=== PATIENT | female | born 1980 | race Caucasian/White ===

== ENCOUNTER 2020-07-08 01:30 | Emergency (ER) | payer OTHER, SELFPAY ==
[2020-07-08 01:30] VITALS: BP 114/58; PULSE 104; RESP 20; O2SAT 100
[2020-07-08 01:40] VITALS: BP 114/58; PULSE 104; RESP 18; O2SAT 100
[2020-07-08 01:46] VITALS: TEMP 37.1
--- NOTE | 2020-07-08 01:47 | ED.CHESTPAIN ---
HPI - Chest Pain General Chief Complaint: Chest Pain Stated Complaint: tachcardic, chest pain started after covid vac Time Seen by Provider: 07/08/20 01:37 Source: patient Mode of arrival: Ambulatory Limitations: no limitations History of Present Illness HPI narrative: 39-year-old woman with a history of depression and anxiety presents 12 hours after her 2nd COVID shot complaining of myalgias and tachycardia significant enough that she is unable to sleep. She describes chest pain across the entire chest associated with rapid heart rate. She has no other specific symptoms. No cough no abdominal pain, no fevers, no dysuria. Related Data Previous Rx's Medication Instructions Recorded citalopram 20 mg tablet 20 mg PO DAILY #135 tab 06/29/20 Allergies Allergy/AdvReac Type Severity Reaction Status Date / Time INGREDIENT: NDA - NO KNOWN Allergy Unknown Uncoded 07/03/20 12:05 DRUG ALLERGIES Review of Systems Review of Systems ROS Unobtainable: All systems reviewed & are unremarkable except as noted in HPI and below Patient History Medical History Depression with anxiety Surgical History H/O hysterectomy for benign disease Family History Sister Bipolar 1 disorder Social History Smoking Status: Never smoker Smoking Status: Never smoker alcohol intake frequency: holidays/special occasions only Substance Use Type: does not use Exam Narrative Exam Narrative: General: Healthy appearing, in no acute distress. Able to give a complete and coherent history. Well-nourished well-developed HEENT: Moist mucous membranes, normal sclera with reactive pupils, Respiratory: Lungs are clear to auscultation, no wheezing no rales no rhonchi. Full and symmetrical air movement Cardiac: Regular rate and rhythm no murmurs no bruits Abdomen: Soft, nontender, good bowel tones, no flank pain Skin: Warm and dry, no rashes Neurologic: Grossly neurologically intact with no obvious asymmetries or abnormalities Extremities: No trauma, well perfused Psych: Cooperative, appropriate insight and affect Initial Vital Signs Initial Vital Signs: Vital Signs Pulse Rate 104 H 07/08/20 01:30 Respiratory Rate 20 07/08/20 01:30 Blood Pressure 114/58 L 07/08/20 01:30 Pulse Oximetry 100 07/08/20 01:30 Course Orders Ordered: ED Orders 07/08/20 01:37 EKG-12 Lead Stat Discontinued Medications Ibuprofen (Ibuprofen 400 Mg Tablet) 400 mg PO NOW ONE Stop: 07/08/20 01:47 Last Admin: 07/08/20 01:58 Dose: 400 mg Documented by: Metoprolol Tartrate (Metoprolol Ir 25 Mg Tablet) 25 mg PO NOW ONE Stop: 07/08/20 01:47 Last Admin: 07/08/20 01:58 Dose: 25 mg Documented by: Vital Signs Vital signs: Vital Signs - 8 hr 07/08/20 01:30 07/08/20 01:46 Temperature 98.8 F Pulse Rate 104 H Respiratory Rate 20 Blood Pressure 114/58 L Pulse Oximetry 100 [facility] - Chest Pain ECG Data Attestation: I personally reviewed and interpreted this ECG as follows: Interpretation: Sinus tachycardia at a rate of 104 Normal sinus, normal intervals No acute ischemic changes0 [facility] Narrative Medical decision making narrative: 39-year-old woman with palpitations and general malaise 12 hours after 2nd COVID vaccination. She describes sinus tachycardia up into the 130 range well laying down. It is finding this to uncomfortable to sleep. On arrival she is in a sinus tachycardia 110 with unremarkable EKG. She is given 25 mg of oral metoprolol and her heart rate comes down to the mid 80s with the sensation of tachycardia resolving. At this point the most likely explanation for her palpitations is a reaction to her COVID vaccine. Should she have recurrent symptoms a more thorough workup would be appropriate. She is safe for home discharge at this time Discharge Plan Departure Patient Disposition: Home Clinical Impression: Palpitations Medication reaction Qualifiers: Encounter type: initial encounter Qualified Code(s): T50.905A - Adverse effect of unspecified drugs, medicaments and biological substances, initial encounter Instructions: DI for Palpitations Activity Restrictions/Additional Instructions: Thank you for coming in tonight You clearly are having a robust immune response to your 2nd COVID vaccination. Your heart palpitations were controlled with 25 mg of oral metoprolol. Should last for another 12 hours or so. Most people find that their reactions are resolving by 24 hours. If you find that your having new symptoms or feeling worse, please feel free to return to the emergency department Prescriptions: No Action citalopram 20 mg tablet 20 mg PO DAILY Qty: 135 RF: 2 Referrals: Gary Ortega MD [Primary Care Provider] -
[2020-07-08] MEDS: IBUPROFEN 400 MG TABLET PO (01:58)
[2020-07-08] MEDS: METOPROLOL IR 25 MG TABLET PO (01:58)
[2020-07-08 02:00] VITALS: BP 115/56; PULSE 106; RESP 22; O2SAT 100
[2020-07-08 02:30] VITALS: BP 101/58; PULSE 87; RESP 23; O2SAT 98
[2020-07-08 03:04] VITALS: BP 101/58; PULSE 74; RESP 20; O2SAT 98
== END 2020-07-08 03:05 | disposition home or self-care (01) ==
PROVIDERS: Emergency Provider Emergency Medicine; PCP Family Medicine; Referring Provider Family Medicine
DX: R07.9 Chest pain, unspecified (principal); R00.2 Palpitations; T50.Z95A Adverse effect of other vaccines and biological substances, initial encounter
CPT/HCPCS: 93005; 93010; 99283

== ENCOUNTER → 2021-08-18 09:28 | Outpatient (CLI) | payer OTHER, SELFPAY ==
[2021-08-18 10:45] LABS: Add Manual Diff / Slide Review NO; Basophils Absolute Auto 0 /uL (0-100); Basophils Percent Auto 0.6 % (0-2); Eosinophils Absolute Auto 100 /uL (0-450); Eosinophils Percent Auto 1.6 % (2-4); Hematocrit 37.9 % (36-46); Hemoglobin 13.4 g/dL (12.0-16.0); Lymphocytes Absolute Auto 1200 /uL (1100-4500); Lymphocytes Percent Auto 25.4 % (25-40); Mean Corpuscular HGB Conc 35.3 % (30-36); Mean Corpuscular Hemoglobin 31.3 PG (26-34); Mean Corpuscular Volume 88.5 fL (80-100); Monocytes Absolute Auto 400 /uL (0-900); Monocytes Percent Auto 7.7 % (3-14); Neutrophils Absolute Auto 3000 /uL (1500-7000); Neutrophils Percent Auto 64.7 % (50-75); Platelet Count 197 X10^3/uL (150-400); Red Blood Cell Count 4.29 X10^6/uL (4.0-5.2); Red Cell Distribution Width 12.9 % (11.6-14.8); White Blood Cell Count 4.6 X10^3/uL (4.5-11.0)
[2021-08-18 10:50] LABS: Alanine Aminotransferase 22 IU/L (<35); Albumin 4.5 g/dL (3.5-5.0); Albumin Globulin Ratio 1.5 (1.0-2.8); Alkaline Phosphatase 50 U/L (38-126); Aspartate Aminotransferase 23 IU/L (14-36); BUN Creatinine Ratio 20.9 (6-22); Bilirubin Total 0.6 mg/dL (0.2-1.3); Blood Urea Nitrogen 14 mg/dL (7-17); C-Reactive Protein Quant < 0.5 mg/dL (<1.0); Calcium 8.9 mg/dL (8.4-10.2); Carbon Dioxide 24 mmol/L (22-32); Chloride 105 mmol/L (98-107); Estimated Glomerular Filt Rate > 60.0 mL/min (>60); Glucose 95 mg/dL (70-100); HEMOLYSIS < 15 (0-50); Potassium 4.5 mmol/L (3.4-5.1); Sodium 135 mmol/L (137-145); Total Protein 7.5 g/dL (6.3-8.2)
[2021-08-18 11:18] LABS: TSH w/ Reflex to FT4 2.04 uIU/mL (0.47-4.68)
[2021-08-18 11:40] LABS: Erythrocyte Sedimentation Rate 6 MM/HR (0-20)
[2021-08-21 18:37] LABS: ANA Screen, IFA Positive (.)
== END ==
PROVIDERS: PCP Family Medicine; Referring Provider Family Medicine; Visit Provider Family Medicine
DX: F41.8 Other specified anxiety disorders (principal); M25.50 Pain in unspecified joint; M25.60 Stiffness of unspecified joint, not elsewhere classified; R76.8 Other specified abnormal immunological findings in serum
CPT/HCPCS: 36415; 80053; 84443; 85025; 85651; 86038; 86140

== ENCOUNTER → 2021-09-08 08:19 | Outpatient (CLI) | payer OTHER, SELFPAY ==
--- NOTE | 2021-09-08 08:20 | DI.RAD.S_ITS ---
PROCEDURE: XR FOOT RT MIN 3V INDICATIONS: bilateral hand and foot pain TECHNIQUE: 3 views of the foot were acquired. COMPARISON: [facility], CR, XR HAND LT MIN 3V, 09/08/2021, 8:21. [facility], CR, XR HAND RT MIN 3V, 09/08/2021, 8:21. [facility], CR, XR FOOT LT MIN 3V, 09/08/2021, 8:21. FINDINGS: Bones: No fractures or dislocations. No suspicious bony lesions. Incidental note is made of a bipartite medial sesamoid bone. Soft tissues: No tibiotalar joint effusion. Achilles tendon appears normal. IMPRESSION: Right foot plain films within normal limits. Dictated by: Odell Jennings M.D. on 09/08/2021 at 9:54 Approved by: Odell Jennings M.D. on 09/08/2021 at 9:54
--- NOTE | 2021-09-08 08:20 | DI.RAD.S_ITS ---
PROCEDURE: XR HAND RT MIN 3V INDICATIONS: bilateral hand and foot pain TECHNIQUE: 3 views of the hand(s) acquired. COMPARISON: [facility], CR, XR FOOT RT MIN 3V, 09/08/2021, 8:21. [facility], CR, XR HAND LT MIN 3V, 09/08/2021, 8:21. [facility], CR, XR FOOT LT MIN 3V, 09/08/2021, 8:21. FINDINGS: Bones: No fractures or dislocations. Carpal bones are normally aligned. No suspicious bony lesions. Soft tissues: No suspicious soft tissue calcifications. IMPRESSION: Normal. Dictated by: Odell Jennings M.D. on 09/08/2021 at 9:53 Approved by: Odell Jennings M.D. on 09/08/2021 at 9:53
--- NOTE | 2021-09-08 08:20 | DI.RAD.S_ITS ---
PROCEDURE: XR HAND LT MIN 3V INDICATIONS: bilateral hand and foot pain TECHNIQUE: 3 views of the hand(s) acquired. COMPARISON: [facility], CR, XR FOOT RT MIN 3V, 09/08/2021, 8:21. [facility], CR, XR HAND RT MIN 3V, 09/08/2021, 8:21. [facility], CR, XR FOOT LT MIN 3V, 09/08/2021, 8:21. FINDINGS: Bones: No fractures or dislocations. Carpal bones are normally aligned. No suspicious bony lesions. Soft tissues: No suspicious soft tissue calcifications. IMPRESSION: Normal left hand plain films. Dictated by: Odell Jennings M.D. on 09/08/2021 at 9:53 Approved by: Odell Jennings M.D. on 09/08/2021 at 9:54
--- NOTE | 2021-09-08 08:20 | DI.RAD.S_ITS ---
PROCEDURE: XR FOOT LT MIN 3V INDICATIONS: bilateral hand and foot pain TECHNIQUE: 3 views of the foot were acquired. COMPARISON: [facility], CR, XR HAND LT MIN 3V, 09/08/2021, 8:21. [facility], CR, XR HAND RT MIN 3V, 09/08/2021, 8:21. [facility], CR, XR FOOT RT MIN 3V, 09/08/2021, 8:21. FINDINGS: Bones: No fractures or dislocations. No suspicious bony lesions. Soft tissues: No tibiotalar joint effusion. Achilles tendon appears normal. IMPRESSION: Normal. Dictated by: Odell Jennings M.D. on 09/08/2021 at 9:54 Approved by: Odell Jennings M.D. on 09/08/2021 at 9:55
== END ==
PROVIDERS: PCP Family Medicine; Referring Provider Family Medicine; Visit Provider Family Medicine
DX: M25.541 Pain in joints of right hand (principal); M25.542 Pain in joints of left hand; M79.671 Pain in right foot; M79.672 Pain in left foot
CPT/HCPCS: 73130; 73630

== ENCOUNTER → 2021-12-03 11:55 | Outpatient (ROUT) | payer OTHER, SELFPAY ==
[2021-12-03 12:29] LABS: COVID19 -Nasal RAPID POSITIVE (Negative)
== END ==
PROVIDERS: PCP Family Medicine; Visit Provider Family Medicine
DX: U07.1 COVID-19 (principal)
CPT/HCPCS: 87635

== ENCOUNTER → 2022-10-01 13:58 | Outpatient (CLI) | payer OTHER, SELFPAY ==
--- NOTE | 2022-10-01 | DI.US.S_ITS ---
PROCEDURE: US PELVIC COMPLETE INDICATIONS: RIGHT LOWER QUADRANT PAIN TECHNIQUE: Real-time scanning was performed of the pelvic organs, with image documentation. Additional endovaginal scanning was necessary due to incomplete visualization of the adnexal and endometrial structures by transabdominal scanning. COMPARISON: None. FINDINGS: Uterus: Absent Ovaries: Right ovary measures 8 cc. Left ovary measures 9 cc. Color and spectral flows are documented. Suspected right corpus luteum. Other: No pathologic free fluid. IMPRESSION: No acute sonographic abnormality in the pelvis. We strive to produce accurate, complete, and clear reports of imaging services. To assist us in improving patient care, this report was composed using standard report templates and voice recognition software. Therefore, it may contain abnormal punctuation, insertions and/or omissions. Occasional wrong-word or sound-alike substitutions may occur. Though we review the report and make efforts to correct it, we do recommend that the report be read carefully in proper context to recognize any text inaccuracies. Dictated by: Duarte Sanabria M.D. on 10/01/2022 at 15:11 Approved by: Duarte Sanabria M.D. on 10/01/2022 at 15:12
--- NOTE | 2022-10-01 14:01 | DI.US.S_ITS ---
PROCEDURE: US ABDOMEN LIMITED INDICATIONS: RIGHT LOWER QUADRANT PAIN - ?APPENDICITIS TECHNIQUE: Real-time focused scanning was performed of the abdomen, with image documentation. COMPARISON: None. FINDINGS: Appendix is not seen. There are fluid-filled loops of bowel and prominent fluid in the right lower quadrant. IMPRESSION: There may be fluid and prominent fluid-filled loops of small bowel in the right lower quadrant. The appendix is not visualized. Dictated by: Duarte Sanabria M.D. on 10/01/2022 at 15:09 Approved by: Duarte Sanabria M.D. on 10/01/2022 at 15:11
[2022-10-01 15:10] LABS: Hematocrit 37.5 % (36-46); Hemoglobin 13.1 g/dL (12.0-16.0); Mean Corpuscular Hemoglobin 30.8 PG (26-34); Platelet Count 234 X10^3/uL (150-400); Red Blood Cell Count 4.25 X10^6/uL (4.0-5.2); Red Cell Distribution Width 13.2 % (11.6-14.8); White Blood Cell Count 6.1 X10^3/uL (4.5-11.0)
[2022-10-01 15:29] LABS: BUN Creatinine Ratio 11.7 (6-22); Blood Urea Nitrogen 7 mg/dL (7-17); Calcium 8.8 mg/dL (8.4-10.2); Carbon Dioxide 27 mmol/L (22-32); Chloride 101 mmol/L (98-107); Estimated Glomerular Filt Rate > 60 mL/min (>60); Glucose 85 mg/dL (70-100); HEMOLYSIS < 15 (0-50); Potassium 3.9 mmol/L (3.4-5.1); Sodium 136 mmol/L (137-145)
== END ==
PROVIDERS: PCP Family Medicine; Referring Provider Family Medicine; Visit Provider Family Medicine
DX: R10.31 Right lower quadrant pain (principal)
CPT/HCPCS: 36415; 76705; 76830; 76856; 80048; 85027

== ENCOUNTER → 2024-07-21 14:23 | Outpatient (CLI) | payer OTHER, SELFPAY ==
[2024-07-21 19:24] LABS: Influenza A - CEPHEID Flu A NEGATIVE (NEGATIVE); Influenza B - CEPHEID Flu B NEGATIVE (NEGATIVE); Respiratory Syncytial Virus Negative (Negative)
[2024-07-21 19:29] LABS: COVID-19 CEPHEID 4-PLEX PCR Negative (Negative)
== END ==
PROVIDERS: PCP Family Medicine; Visit Provider Physician Assistant
DX: R05.1 Acute cough (principal)
CPT/HCPCS: 0241U

== ENCOUNTER → 2024-07-21 14:25 | Outpatient (CLI) | payer OTHER, SELFPAY ==
[2024-07-21 15:04] LABS: Add Manual Diff / Slide Review NO; Basophils Absolute Auto 0 /uL (0-100); Basophils Percent Auto 0.4 % (0-2); Eosinophils Absolute Auto 0 /uL (0-450); Eosinophils Percent Auto 0.3 % (2-4); Hematocrit 38.6 % (36-46); Hemoglobin 13.5 g/dL (12.0-16.0); Lymphocytes Absolute Auto 1600 /uL (1100-4500); Lymphocytes Percent Auto 19.8 % (25-40); Mean Corpuscular Hemoglobin 30.9 PG (26-34); Mean Corpuscular Volume 88.5 fL (80-100); Monocytes Absolute Auto 600 /uL (0-900); Monocytes Percent Auto 6.8 % (3-14); Neutrophils Absolute Auto 5900 /uL (1500-7000); Neutrophils Percent Auto 72.7 % (50-75); Platelet Count 254 X10^3/uL (150-400); Red Blood Cell Count 4.36 X10^6/uL (4.0-5.2); Red Cell Distribution Width 12.8 % (11.6-14.8); White Blood Cell Count 8.1 X10^3/uL (4.5-11.0)
[2024-07-21 15:17] LABS: Alanine Aminotransferase 34 IU/L (<35); Albumin 4.9 g/dL (3.5-5.0); Albumin Globulin Ratio 1.8 (1.0-2.8); Alkaline Phosphatase 56 U/L (38-126); Aspartate Aminotransferase 26 IU/L (14-36); BUN Creatinine Ratio 16.7 (6-22); Bilirubin Total 0.5 mg/dL (0.2-1.3); Blood Urea Nitrogen 10 mg/dL (7-17); Calcium 9.7 mg/dL (8.4-10.2); Carbon Dioxide 26 mmol/L (22-32); Chloride 102 mmol/L (98-107); Estimated Glomerular Filt Rate > 60 mL/min (>60); Globulin 2.8 g/dL (1.7-4.1); Glucose 119 mg/dL (70-100); HEMOLYSIS < 15 (0-50); Potassium 4.1 mmol/L (3.4-5.1); Sodium 138 mmol/L (137-145); Total Protein 7.7 g/dL (6.3-8.2)
[2024-07-21 15:50] LABS: TSH w/ Reflex to FT4 2.06 uIU/mL (0.47-4.68)
== END ==
PROVIDERS: PCP Family Medicine; Referring Provider Physician Assistant; Visit Provider Physician Assistant
DX: R53.83 Other fatigue (principal); R05.1 Acute cough
CPT/HCPCS: 0241U; 80053; 84443; 85025

== ENCOUNTER → 2025-02-04 13:26 | Outpatient (CLI) | payer OTHER, SELFPAY ==
--- NOTE | 2025-02-04 13:27 | DI.MG.S_ITS ---
US breast LT limited, MM diagnostic mammo implant LT: 02/04/2025 BI-RADS: 2 CLINICAL: 44-year old female for left diagnostic mammogram and left diagnostic breast ultrasound that is a recall from screening on 01/14/2025. Tyrer-Cuzick lifetime risk of 6.2%. No personal or first-degree family history of breast cancer. The patient has bilateral implants. PRIOR EXAMS Mammogram(s): 01/14/2025. MAMMOGRAPHY TECHNIQUE: 2D and 3D (tomosynthesis) digital mammographic views obtained, with additional images as needed for full coverage. Current study was also evaluated with a Computer Aided Detection (CAD) system. ULTRASOUND TECHNIQUE: Left targeted breast ultrasound of the area of clinical interest and the axilla was performed with image documentation. Real-time aguiar scale and color doppler imaging of the area of clinical interest was performed with image documentation. DENSITY Left: C. The breast is heterogeneously dense, which may obscure small masses. MAMMOGRAPHY FINDINGS Left (finding-1): Lower Central, Middle depth, measuring 0.9cm: Correlating with findings on screening mammogram there is a circumscribed, oval, low-density mass present. ULTRASOUND FINDINGS Left (finding-1): Lower at 6:00, 4 cm from nipple, measuring 0.8 x 1.2 x 0.4 cm: Correlating with findings on mammogram, there are clustered microcysts. Left: Axilla: No abnormal lymph nodes are seen in the axilla. IMPRESSION: Left * No evidence of malignancy with benign findings. RECOMMENDATIONS Bilateral * Annual screening mammography. COMMENTS: Findings and recommendations were conveyed to the patient during today's evaluation. OVERALL ASSESSMENT CATEGORY BI-RADS-2: Benign. The [employer] recommends annual screening mammography beginning at age 40 for women with average risk of breast cancer. ELECTRONICALLY SIGNED: Brooke Beltran M.D. on 02/04/2025 at 06:30:05 PM PT Interpreting Station ID: [id number]
== END ==
LOC: MAMMO 13:27
PROVIDERS: PCP Family Medicine; Referring Provider Physician Assistant; Visit Provider Physician Assistant
DX: R92.8 Other abnormal and inconclusive findings on diagnostic imaging of breast (principal); N60.02 Solitary cyst of left breast; R92.332 Mammographic heterogeneous density, left breast; Z98.82 Breast implant status
CPT/HCPCS: 76642; 77065; G0279